=== PATIENT | male | born 1975 | race African-American/Black ===

== ENCOUNTER 2017-07-22 20:45 | Emergency (ER) | payer BC, MEDICAID ==
--- NOTE | 2017-07-22 20:53 | ED Physician Chart ---
Chief Complaint/HPI - Patient Information Date Seen:: 07/22/17 Time Seen:: 20:46 Chief Complaint:: Chest pain for 2 days. History of Present Illness:: Pt was seen by me immediately upon his arrival. Pt was brought in by ambulance because of onset of left sided chest pain for 2 days. Chest pain is characterized as sharp, intermittent, with ? radiation to left upper arm. Pain can be precipitated and worsened with lying down, coughing or taking a deep breath. Chest pain is not exertion related. No associated palpitation or dyspnea. No ankle edema, PND, or orthopnea. Pt has had a cough with yellow sputum production for 3 days. No fever. No lightheadedness. Pt received ASA and sublingual nitroglycerin per ambulance staff prior to arrival at ER. Sublingual nitroglycerin has not been helpful in relieving his chest pain. Pt has no exercise limitation. Pt denies use of cocaine or amphetamine. He uses marijuana occasional. No other illicit drug use. Allergies:: NKA Historian:: Patient Family MD/PCP:: unknown LMP:: N/A Review:: Nurse's Note Reviewed Review of Systems - Review of Systems General/Constitutional: No fever, No chills, No weight loss, No weakness, No edema, No loss of appetite Skin: No skin lesions, No rash, No bruising Head: No headache, No light-headedness Eyes: No loss of vision, No pain, No diplopia ENT: No earache, No nasal drainage, No sore throat, No tinnitus Neck: No neck pain, No swelling, No thyromegaly, No stiffness, No mass noted Cardio Vascular: Chest pain (consistent with musculoskeletal in etiology.), No palpitations, No PND, No orthopnea, No edema Pulmonary: No SOB, Cough, Sputum (yellow sputum.), No wheezing GI: No nausea, No vomiting, No diarrhea, No pain G/U: No dysuria, No frequency, No hematuria Musculoskeletal: No bone or joint pain, No back pain, No muscle pain Endocrine: No polyuria, No polydipsia Psychiatric: No prior psych history Hematopoietic: No bruising, No lymphadenopathy Allergic/Immuno: No urticaria, No angioedema Neurological: No syncope, No focal symptoms, No weakness, No paresthesia, No headache, No confusion Past Medical History - Past Medical History Past Medical History: No significant medical hx Family History: None Social History: Non Smoker, Alcohol (rare), Illicit Drug Use (marijuana use twice a month. Pt has been informed about health risks associated with marijuana use and has been advised to quit. Pt acknowledges understanding. Pt denies other illicit drug use.), Single, Employed, Other (lives with his aunt.) Employment:: [employer] Surgical History: other (hemorrhoidectomy in '16) Psychiatricy History: None Medication: Reviewed Family Medical History - Family Member Mother History Unknown: Yes Physical Exam - Physical Examination General/Constitutional: Awake, Well-developed, well-nourished, Alert, No distress, GCS 15, Non-toxic appearing, Ambulatory Other Gen/Cons comments:: Breathes comfortably, speaks clearly, and interacts normally. Pt avoid deep breathing because it aggravates his chest pain. Head: Atraumatic Eyes: Lids, conjuctiva normal, PERRL, EOMI Skin: Nl inspection, No rash, No skin lesions, No ecchymosis, Well hydrated, No lymphadenopathy ENMT: External ears, nose nl, Nasal exam nl, Lips, teeth, gums nl, Oropharynx nl Neck: Nontender, Full ROM w/o pain, No JVD, No nuchal rigidity, No bruit, No mass, No stridor Respiratory: Nl effort/Exclusion, Clear to Auscultation, No Wheeze/Rhonchi/Rales Other Respiratory comments:: Chest wall: reproducible tenderness to palpation at L parasternal region. No gross deformity, crepitus, erythema. open wound, or any skin lesions. Pt states that it is exactly the same pain that he has experienced for the past 2 days. Cardio Vascular: RRR, No murmur, gallop, rubs, NL S1 S2, Carotid/Femoral/Distal pulses equal bilaterally GI: No tenderness/rebounding/guarding, No organomegaly, Normal BS's, Nondistended, No mass/bruits Other GI comments:: Abdomen is soft. Extremities: No tenderness or effusion, Full ROM, normal strength in all extremities, No edema Neuro/Psych: Alert/oriented (oriented x 3), Judgement/insight normal, Mood normal, Normal gait, No focal deficits Labs/Radiology/EKG Results - Lab Results Results: Laboratory Tests 07/22/17 07/22/17 07/22/17 21:06 21:06 21:06 WBC 4.8 RBC 4.91 Hgb 14.1 Hct 41.7 MCV 84.9 MCH 28.6 MCHC Differential 33.7 RDW 13.0 Plt Count 226 MPV 7.3 Neutrophils % 57.6 Lymphocytes % 25.1 Monocytes % 11.7 H Eosinophils % 5.0 Basophils % 0.6 PT 9.4 L INR 0.90 PTT (Actin FS) 26.7 Sodium 133 L Potassium 3.8 Chloride 101 Carbon Dioxide 28.5 Anion Gap 7.3 BUN 11 Creatinine 1.1 Est GFR ( Amer) > 60.0 Est GFR (Non-Af Amer) > 60.0 BUN/Creatinine Ratio 10.0 Glucose 108 H Calcium 9.6 Total Bilirubin 0.4 AST 27 ALT 42 Alkaline Phosphatase 69 Creatine Kinase 279 H CK-MB (CK-2) 1.7 Troponin I Total Protein 7.1 Albumin 4.1 L Globulin 3.0 Albumin/Globulin Ratio 1.4 Urine Opiates Screen Urine Methadone Screen Ur Barbiturates Screen Ur Tricyclics Screen Ur Phencyclidine Scrn Amphetamines Screen U Methamphetamines Scrn U Benzodiazepines Scrn U Cocaine Metab Screen U Cannabinoids Screen 07/22/17 07/22/17 21:06 21:30 WBC RBC Hgb Hct MCV MCH MCHC Differential RDW Plt Count MPV Neutrophils % Lymphocytes % Monocytes % Eosinophils % Basophils % PT INR PTT (Actin FS) Sodium Potassium Chloride Carbon Dioxide Anion Gap BUN Creatinine Est GFR ( Amer) Est GFR (Non-Af Amer) BUN/Creatinine Ratio Glucose Calcium Total Bilirubin AST ALT Alkaline Phosphatase Creatine Kinase CK-MB (CK-2) Troponin I 0.01 Total Protein Albumin Globulin Albumin/Globulin Ratio Urine Opiates Screen NEGATIVE Urine Methadone Screen NEGATIVE Ur Barbiturates Screen NEGATIVE Ur Tricyclics Screen NEGATIVE Ur Phencyclidine Scrn NEGATIVE Amphetamines Screen NEGATIVE U Methamphetamines Scrn NEGATIVE U Benzodiazepines Scrn NEGATIVE U Cocaine Metab Screen NEGATIVE U Cannabinoids Screen NEGATIVE - Radiology Results Results: PCXR: Based on my interpretation, poor inspiration; otherwise, NAD. Official report is pending. - EKG Interpretations EKG Time:: 20:59 Rate & Rhythm: NSR with VR 83 Comments:: Cannot r/o old IMI, age undetermined. No acute ischemic changes. ED Septic Shock - . Is Septic Shock (SBP<90, OR Lactate>4 mmol\L) present?: No Reassessment (Disposition) - Reassessment Reassessment:: 2229 Pt has been repeatedly evaluated. Pt now feels much better. Remaining lab results and CXR just became available. EKG, CXR and lab findings have been reviewed with pt. Pt requests to go home now and does not want further observation/management in hospital. Aftercare instructions have been given. Reassessment Condition:: Improved - Diagnosis Diagnosis:: Acute bronchitis. Stable. Noncardiac chest wall due to cough. Stable and improved. - Aftercare/Follow up Instructions Aftercare/Follow-Up Instructions:: Refer to Discharge Instructions Notes:: Bedrest for today. Avoid activities that increase chest wall motion. May take Motrin 200 mg tab 4 tabs po q8h prn for noncardiac chest wall pain, not to take the first dose at least 6 hours after Toradol was given here. May also take Tylenol 500 mg tab one tab po q6h prn for pain. F/U with Dr. Green or PCP of pt's choice in one day for recheck with repeat lab study: CMP. Return to ER immediately if condition worsens or if there is any further questions/problems. Medication Prescribed:: Zithromax 250 mg tab 2 tabs po for one dose today, then one tab po daily Day 2 to 5 - Patient Disposition Discharge/Transfer:: Home Time:: 22:40 Condition at Disposition:: Stable, Improved
[2017-07-22 21:16] LABS: % BASOPHILS 0.6 % (0.0-2.0); % LYMPHOCYTES 25.1 % (20.0-50.0); % MONOCYTES 11.7 % (2.0-10.0); % NEUTROPHILS 57.6 % (40.0-80.0); HEMATOCRIT 41.7 % (39.0-49.0); HEMOGLOBIN 14.1 gm/dL (13.2-17.3); MEAN CELL VOLUME 84.9 fl (80-99); MEAN CORPUSCULAR HEMOGLOBIN 28.6 pg (26.0-30.0); MEAN CORPUSCULAR HGB CONC 33.7 pg (28.0-36.0); MEAN PLATELET VOLUME 7.3 fl; NEUTROPHILE ABSOLUTE 2.8 Th/cmm (1.8-8.0); PLATELET COUNT 226 Th/cmm (150-400); RED BLOOD COUNT 4.91 Mil/cmm (4.30-5.70); WHITE BLOOD COUNT 4.8 Th/cmm (4.8-10.8)
[2017-07-22 21:28] LABS: INR 0.9 (0.5-1.4); PROTHROMBIN TIME (TEST) 9.4 SECONDS (9.5-11.5)
[2017-07-22 21:32] LABS: ALB/GLOB RATIO 1.4 (1.0-1.8); ALKALINE PHOSPHATASE 69 U/L (34-104); ANION GAP 7.3 (7.0-16.0); BILIRUBIN,TOTAL 0.4 mg/dL (0.3-1.0); BUN - UREA NITROGEN 11 mg/dL (7-25); CALCIUM SERUM 9.6 mg/dL (8.6-10.3); CARBON DIOXIDE 28.5 mEq/L (21.0-31.0); CHLORIDE 101 mEq/L (98-107); CREATININE - SERUM 1.1 mg/dL (0.7-1.3); GLUCOSE 108 mg/dL (70-105); POTASSIUM SERUM 3.8 mEq/L (3.5-5.1); SGOT 27 U/L (13-39); SGPT/ALT 42 U/L (7-52); SODIUM SERUM 133 mEq/L (136-145)
[2017-07-22 21:56] LABS: AMPHETAMINE URINE NEGATIVE (NEGATIVE); BARBITURATES URINE NEGATIVE (NEGATIVE); METHADONE URINE NEGATIVE (NEGATIVE)
[2017-07-22 21:58] LABS: CREATINE KINASE MB 1.7 ng/mL (0.6-6.3)
--- NOTE | 2017-07-23 08:50 | Diagnostic Imaging Report ---
Exam: Portable examination of chest HISTORY: Chest pain Findings: Portable upright examination of chest at 2134 hours reviewed no prior studies available comparison. The study demonstrates no active pulmonic infiltrates or effusions. Mediastinal structures midline bony thorax intact. IMPRESSION: no acute disease.
== END 2017-07-22 22:56 | disposition home or self-care (01) ==
LOC: ER 20:45
DX: J20.9 Acute bronchitis, unspecified (principal); R07.9 Chest pain, unspecified; F12.10 Cannabis abuse, uncomplicated
CPT/HCPCS: 99285; 96374; 93005; 71010; 84484; 36415; 80307; 85025; 85610; 82550; 82553; 80053; J1885